=== PATIENT | female | born 1950 | race Caucasian/White ===

== ENCOUNTER 2022-05-12 08:00 | Outpatient (CLI) | payer MEDICARE | END 2022-05-12 08:01 | disposition home or self-care (01) | LOC: PET 08:00 | PROVIDERS: ATTEND Internal Medicine Hematology & Oncology | DX: C90.00 Multiple myeloma not having achieved remission (principal); C79.51 Secondary malignant neoplasm of bone | CPT/HCPCS: 78816; A9552 ==

== ENCOUNTER 2022-05-25 07:23 | Day surgery (SDC) | payer MEDICARE ==
[2022-05-24 09:07] VITALS: BMI 26.6
[2022-05-25] MEDS ORDERED: Sodium Chloride 0.9% 100 ML ONE (07:59)
[2022-05-25] MEDS ORDERED: Lidocaine 1% MPF 2 ML VIAL ONE (07:59)
[2022-05-25] MEDS ORDERED: CEFAZOLIN 2 GM VIAL ONE (07:59)
[2022-05-25] MEDS ORDERED: Lidocaine 2% PF 5 ML VIAL ONE (08:51)
[2022-05-25] MEDS ORDERED: Bupivacaine HCl 0.5%/Epinephrine 1:200,000/PF 30 ml Vial ONE (08:51)
[2022-05-25] MEDS ORDERED: Fentanyl 250 MCG/5 ML VIAL ONE (09:00)
[2022-05-25] MEDS ORDERED: PROPOFOL 200 MG/20 ML VIAL ONE (09:17)
== END 2022-05-25 10:45 | disposition home or self-care (01) ==
LOC: SDC 07:23
PROVIDERS: ATTEND Specialist
PROC: 0JH60WZ Insertion of Totally Implantable Vascular Access Device into Chest Subcutaneous Tissue and Fascia, Open Approach (ICD-10-PCS; principal; 2022-05-25)
PROC: 02HV33Z Insertion of Infusion Device into Superior Vena Cava, Percutaneous Approach (ICD-10-PCS; 2022-05-25)
DX: C90.00 Multiple myeloma not having achieved remission (principal); R73.03 Prediabetes; I51.9 Heart disease, unspecified; E07.9 Disorder of thyroid, unspecified; I71.20 Thoracic aortic aneurysm, without rupture, unspecified; Z79.84 Long term (current) use of oral hypoglycemic drugs; Z79.890 Hormone replacement therapy; Z79.899 Other long term (current) drug therapy
CPT/HCPCS: 36561; 71045; C1788; J1642; J2001; J2704; J3010; J3490

== ENCOUNTER 2023-03-08 08:00 | Outpatient (CLI) | payer MEDICARE | END 2023-03-08 08:01 | disposition home or self-care (01) | LOC: PET 08:00 | PROVIDERS: ATTEND Internal Medicine Hematology & Oncology | DX: C90.00 Multiple myeloma not having achieved remission (principal); C79.51 Secondary malignant neoplasm of bone; M43.8X4 Other specified deforming dorsopathies, thoracic region; M43.8X6 Other specified deforming dorsopathies, lumbar region | CPT/HCPCS: 78816; A9552 ==

== ENCOUNTER 2023-06-14 11:50 | Day surgery (SDC) | payer MEDICARE ==
[2023-06-14] MEDS ORDERED: Oxymetazoline HCl 0.05% (30 ML BOT) ONE ×2 (13:12→13:28)
[2023-06-14 13:17] LABS: Hematocrit 36.1 % (36.0-47.0); Hemoglobin 11.4 g/dL (12.0-16.0)
[2023-06-14] MEDS ORDERED: fentaNYL PF 100 MCG/2 ML SYRINGE ONE (13:27)
[2023-06-14] MEDS ORDERED: PROPOFOL 20 ML ONE (13:27)
[2023-06-14] MEDS ORDERED: EPINEPHrine 1 MG/ML VIAL ONE (13:28)
[2023-06-14] MEDS ORDERED: Ondansetron PF 4 MG/2 ML Vial ONE (13:28)
[2023-06-14] MEDS ORDERED: Dexamethasone 20 MG/5 ML VIAL ONE (13:28)
[2023-06-14] MEDS ORDERED: Lidocaine 1% (PF) 30 ML VIAL ONE (13:28)
[2023-06-14] MEDS ORDERED: Lidocaine 1% PF 5 ML VIAL ONE (13:28)
[2023-06-14 13:39] LABS: Anion Gap 18 mmol/L (10-20); BUN (Urea Nitrogen) 13 mg/dL (9.8-20.1); Calc. Creatinine Clearance 0 mL/min (70-130); Carbon Dioxide 23 mmol/L (23-31); Chloride 103 mmol/L (98-107); Estimated GFR 77; Glucose 244 mg/dL (83-110); Potassium 3.5 mmol/L (3.5-5.1); Sodium 140 mmol/L (136-145)
[2023-06-14] MEDS ORDERED: Hydrocodone-Acetamin 15 ML UDCUP ONE (16:46)
== END 2023-06-14 17:13 | disposition home or self-care (01) ==
LOC: SDC 11:50
PROVIDERS: ATTEND Otolaryngology Plastic Surgery within the Head & Neck
PROC: 09TT8ZZ Resection of Left Frontal Sinus, Via Natural or Artificial Opening Endoscopic (ICD-10-PCS; principal; 2023-06-14)
PROC: 09TW8ZZ Resection of Right Sphenoid Sinus, Via Natural or Artificial Opening Endoscopic (ICD-10-PCS; 2023-06-14)
PROC: 09TX8ZZ Resection of Left Sphenoid Sinus, Via Natural or Artificial Opening Endoscopic (ICD-10-PCS; 2023-06-14)
PROC: 09TQ8ZZ Resection of Right Maxillary Sinus, Via Natural or Artificial Opening Endoscopic (ICD-10-PCS; 2023-06-14)
PROC: 09TR8ZZ Resection of Left Maxillary Sinus, Via Natural or Artificial Opening Endoscopic (ICD-10-PCS; 2023-06-14)
PROC: 09TS8ZZ Resection of Right Frontal Sinus, Via Natural or Artificial Opening Endoscopic (ICD-10-PCS; 2023-06-14)
PROC: 09TL8ZZ Resection of Nasal Turbinate, Via Natural or Artificial Opening Endoscopic (ICD-10-PCS; 2023-06-14)
DX: J34.3 Hypertrophy of nasal turbinates (principal); J32.0 Chronic maxillary sinusitis; J32.1 Chronic frontal sinusitis; J32.2 Chronic ethmoidal sinusitis; J32.3 Chronic sphenoidal sinusitis; J33.9 Nasal polyp, unspecified; C90.00 Multiple myeloma not having achieved remission; Z79.899 Other long term (current) drug therapy
CPT/HCPCS: 30140; 31259; 31267; 31276; 61782; 80048; 85014; 85018; 87070; 87075; 87076; 87077; 87205; 93005; J0171; 93010; J1100; J2001; J2405; J2704

== ENCOUNTER 2023-08-31 13:47 | Outpatient (CLI) | payer MEDICARE | END 2023-08-31 13:48 | disposition home or self-care (01) | LOC: BICRAD 13:47 | PROVIDERS: ATTEND Internal Medicine Hematology & Oncology | DX: C90.00 Multiple myeloma not having achieved remission (principal); C79.51 Secondary malignant neoplasm of bone; D51.8 Other vitamin B12 deficiency anemias; S22.42XA Multiple fractures of ribs, left side, initial encounter for closed fracture | CPT/HCPCS: 71046; 71110 ==

== ENCOUNTER 2024-06-14 14:34 | Outpatient (CLI) | payer MEDICARE | END 2024-06-14 14:35 | disposition home or self-care (01) | LOC: BICRAD 14:34 | PROVIDERS: ATTEND Family Medicine | DX: J18.9 Pneumonia, unspecified organism (principal); C90.00 Multiple myeloma not having achieved remission; C79.51 Secondary malignant neoplasm of bone; D51.8 Other vitamin B12 deficiency anemias; D80.1 Nonfamilial hypogammaglobulinemia; D50.8 Other iron deficiency anemias | CPT/HCPCS: 71046; 80053 ==

== ENCOUNTER 2024-07-16 09:58 | Outpatient (CLI) | payer MEDICARE | END 2024-07-16 09:59 | disposition home or self-care (01) | LOC: RAD 09:58 | PROVIDERS: ATTEND Family Medicine | DX: Z91.89 Other specified personal risk factors, not elsewhere classified (principal) | CPT/HCPCS: 74230 ==